=== PATIENT | male | born 2000 ===

== ENCOUNTER 2022-03-01 15:54 | Outpatient (REF) | payer OTHER, SELFPAY ==
[2022-03-01 16:02] LABS: MANUAL DIFF FLAG NO
[2022-03-01 16:06] LABS: Basophils Percent Auto 0.6 % (0-2); Eosinophils Absolute Auto 0.1 X10*3/uL (0.0-0.4); Eosinophils Percent Auto 1.3 % (0-4); Hematocrit 44.1 % (42.0-52.0); Imm Gran Abs Auto 0.01 X10*3/uL (0.00-0.03); Imm Gran Pct Auto 0.1 % (0.0-0.4); Lymphocytes Absolute Auto 1.8 X10*3/uL (1.2-4.9); Lymphocytes Percent Auto 24.4 % (20-40); Mean Corpuscular Hemoglobin 30.4 pg (27.0-33.0); Mean Corpuscular Volume 89.5 fL (80.0-98.0); Mean Platelet Volume 10.1 fL (9.4-12.4); Monocytes Absolute Auto 0.9 X10*3/uL (0.1-1.2); Monocytes Percent Auto 12.8 % (2-11); Neutrophils Absolute Auto 4.4 x10*3/uL (2.0-8.3); Neutrophils Percent Auto 60.8 % (45-73); Platelet Count 226 X10*3/uL (160-400); Red Blood Count 4.93 X10*6/uL (4.60-5.80); Red Cell Distribution Width 12.8 % (11.0-16.0); White Blood Count 7.2 X10*3/uL (4.8-10.8)
[2022-03-01 16:11] LABS: Appearance Urine Clear; Color Urine Dark Yellow; Glucose Urine UA Negative (Negative); Leukocyte Esterase Urine Negative (Negative); Nitrite Urine Negative (Negative); Specific Gravity - Urine >= 1.030 (1.005-1.025); Urine Blood Negative (Negative); Urine Ketones Trace mg/dL (Negative); Urine Protein Trace mg/dL (Neg-Trace)
[2022-03-01 16:14] LABS: Bacteria Urine None Seen (None Seen); Hyaline Casts Urine 0-2 /LPF (0-2); RBC Urine 0-2 /HPF (0-2); Squamous Epithelial Cell Urine 0-2 /HPF (0-2); WBC Urine 0-5 /HPF (0-5)
[2022-03-01 16:17] LABS: Alanine Aminotransferase 14 U/L (0-40); Albumin Level 4.7 g/dL (3.5-5.0); Alkaline Phosphatase 104 U/L (39-117); Anion Gap 11 (12-20); Aspartate Amino Transferase 19 U/L (5-37); Bilirubin Total 1.1 mg/dL (0.0-1.0); Blood Urea Nitrogen 17 mg/dL (9-16); Calcium 9.4 mg/dL (8.4-10.2); Carbon Dioxide 28 mmol/L (22-29); Chloride 104 mmol/L (96-108); Cholesterol 148 mg/dL; Estimated Glomerular Filt Rate > 60; Glucose Random 86 mg/dL (60-115); HDL Cholesterol 60 mg/dL; LDL Cholesterol Calculated 78 mg/dl; Potassium 4.2 mmol/L (3.3-5.1); Sodium 139 mmol/L (135-145); Total Protein 7.3 g/dL (6.5-8.0); Triglycerides 53 mg/dL
[2022-03-01 16:38] LABS: TSH reflex Free T4 2.02 uIU/mL (0.32-4.0)
== END 2022-03-01 15:55 | disposition home or self-care (01) ==
LOC: HO.LNP 15:54
PROVIDERS: Visit Provider Internal Medicine
DX: F41.9 Anxiety disorder, unspecified (principal)
CPT/HCPCS: 80053; 80061; 81001; 84443; 85025

== ENCOUNTER 2023-12-03 10:52 | Outpatient (REF) | payer BC, SELFPAY ==
[2023-12-03 10:55] LABS: MANUAL DIFF FLAG NO
[2023-12-03 11:12] LABS: Basophils Absolute Auto 0.1 X10*3/uL (0.0-0.2); Basophils Percent Auto 0.8 % (0-2); Eosinophils Absolute Auto 0.1 X10*3/uL (0.0-0.4); Hematocrit 45.6 % (42.0-52.0); Hemoglobin 15.7 g/dl (14.0-18.0); Imm Gran Abs Auto 0.01 X10*3/uL (0.00-0.03); Imm Gran Pct Auto 0.2 % (0.0-0.4); Lymphocytes Absolute Auto 2.5 X10*3/uL (1.2-4.9); Lymphocytes Percent Auto 40.1 % (20-40); Mean Corpuscular HGB Conc 34.4 g/dl (31.0-36.0); Mean Corpuscular Hemoglobin 30.6 pg (27.0-33.0); Mean Corpuscular Volume 88.9 fL (80.0-98.0); Monocytes Absolute Auto 0.8 X10*3/uL (0.1-1.2); Monocytes Percent Auto 12.6 % (2-11); Neutrophils Absolute Auto 2.7 x10*3/uL (2.0-8.3); Neutrophils Percent Auto 44.3 % (45-73); Platelet Count 222 X10*3/uL (160-400); Red Blood Count 5.13 X10*6/uL (4.60-5.80); Red Cell Distribution Width 12.6 % (11.0-16.0); White Blood Count 6.1 X10*3/uL (4.8-10.8)
[2023-12-03 11:17] LABS: Appearance Urine Clear; Color Urine Yellow; Glucose Urine UA Negative (Negative); Leukocyte Esterase Urine Trace (Negative); Nitrite Urine Negative (Negative); Specific Gravity - Urine 1.025 (1.005-1.025); UMIC TRIGGER UACC YES; Urine Blood Negative (Negative); Urine Ketones Negative (Negative); Urine Protein Trace mg/dL (Neg-Trace)
[2023-12-03 11:19] LABS: Bacteria Urine None Seen (None Seen); Hyaline Casts Urine 0-2 /LPF (0-2); RBC Urine 0-2 /HPF (0-2); Squamous Epithelial Cell Urine 0-2 /HPF (0-2); WBC Urine 0-5 /HPF (0-5)
[2023-12-03 11:25] LABS: Alanine Aminotransferase 20 U/L (0-40); Albumin Level 4.6 g/dL (3.5-5.0); Alkaline Phosphatase 84 U/L (39-117); Anion Gap 11 (12-20); Aspartate Amino Transferase 23 U/L (5-37); Blood Urea Nitrogen 16 mg/dL (9-16); Calcium 9.8 mg/dL (8.4-10.2); Carbon Dioxide 27 mmol/L (22-29); Chloride 106 mmol/L (96-108); Cholesterol 167 mg/dL (<200); Estimated Glomerular Filt Rate > 60; Glucose Fasting 88 mg/dL (60-99); HDL Cholesterol 54 mg/dL (>40); LDL Cholesterol Calculated 102 mg/dL (<100); Potassium 3.8 mmol/L (3.3-5.1); Sodium 140 mmol/L (135-145); Total Protein 7.4 g/dL (6.5-8.0); Triglycerides 57 mg/dL (<150)
== END 2023-12-03 10:53 | disposition home or self-care (01) ==
LOC: HO.LNP 10:52
PROVIDERS: Visit Provider Internal Medicine
DX: Z00.00 Encounter for general adult medical examination without abnormal findings (principal); Z13.89 Encounter for screening for other disorder
CPT/HCPCS: 80053; 80061; 81001; 85025

== ENCOUNTER 2024-12-03 07:30 | Outpatient (REF) | payer BC, SELFPAY ==
--- OUTSIDE RECORDS SUMMARY | 2024-04-20 10:15 | XMS_ITS ---
Author Organization Monty Fraser MD Address [address] [place], [place] [id number] Care Team Providers Care Express Manager Name Role Phone Monty Fraser Primary Care Provider [phone] Reason For Referral Reason impetigo Diagnosis 1 Impetigo (L01.00) Referral Organization Monty Fraser MD Referring Provider First Name Monty Referring Provider Last Name Evelio Referring Provider Speciality Internal M edicine Referred Provider [facility] Referred Provider Specialty Dermatology General Notes Hoda Dooley 03:13:39 PM EST > ins referral faxed patient is aware of appt Soumya Annette 04/21/2024 08:59:20 AM EST > faxed keep failing, patient has a hard copy of the referral Referral Priority Routine Referral Appointment Date 04/21/2024 REASON FOR VISIT left arm rash x 4 days, seen at [facility], given Valcycolvir, no improvement Medications Medication SIG (Take, Route, Frequency, Duration) Notes Start Date End Date Status Doxycycline Hyclate 100 MG 1 capsule Ora lly Twice a day for 10 days 04/20/2024 Active Mupirocin Calcium 2 % as directed Order Processing Specialist ally 3 times a day for 10 days 04/20/2024 Active Paxil 30 MG 1 tablet in the morn ing Orally Once a day for 90 days 03/01/2022 Active Vital Signs Blood pressure systolic 100 mm Hg 04/20/20 24 Blood pressure diastolic 60 mm Hg 024 Height 68 in 04/20/2024 Weight 190 lbs 04/20/2024 BMI 28.89 kg/m2 04/20/2024 Encounters Encounter Location Date Provider Diagnosis Monty Fraser MD [address] [place], [place] [id number] 04/20/2024 Monty Fraser Impetigo L01.00 Assessments Encounter Date Diagnosis (ICD Code) Assessment Notes Treatment Notes Treatment Clinical Notes Section Notes 04/20/2024 Impetigo (ICD-10 - L01.00) will stop the valcylclovir and just use the antibiotics, patient verbalized understanding of instructions Plan Of Treatment Medication Medication Name Sig Start Date Stop Date Notes Doxycycline Hyclate 100 MG 1 capsule Ora lly Twice a day for 10 days 04/20/2024 Mupirocin Calcium 2 % as directed Order Processing Specialist ally 3 times a day for 10 days 04/20/2024 Treatment Notes Assessment Notes Impetigo will stop the valcyl clovir and just use the antibiotics, patient verbalized understanding of instructions Referrals Referral Date Details 04/20/2024 04/20/2024, impetigo , [facility] Next Appt Details Provider Name:Monty Lopez ier, 12/10/2024 11:00:00 AM, [address], [address], [place], [place], [id number], Progress Notes * Yasmani GALLEGOSDOB:1999 (23 yo M)Acc No.[id number]:04/20/2024 Progress Notes Patient: Yasmani Roberts Provider: Diana Fraser MD :2000 A ge:23 Y S ex:Male Date:04/20/2024 Address: [address], [id number] Subjective: * Chief Complaints: * L eft arm rash x 4 daysseen at [facility], given Valcycolvir, no improvement * HPI: S ymptom(s): patient is a 23 yo male here with complaint of rash on upper left arm, that appears to be herpes or impetigo. * ROS: G eneral/Constitutional: Patient denies c hills , fatigue , fever. E NT: Patient denies d ecreased sense of smell , any loss of taste , sore throat. M usculoskeletal: Patient denies m uscle aches. P eripheral Vascular: Patient denies r ed and blue toes. l esion is still spreading after starting on meds. * Medical History: * Surgical History: * Hospitalization/Major Diagno stic Procedure: * Medications: T akingPaxil 30 MG Tablet 1 tablet in the morning Orally Once a dayTaking Paxil 30 MG Tablet 1 tablet in the morning Orally Once a day Objective: * Vitals: H t: 68, Wt:190, BMI:28.89, BP:100/60. * Examination: G eneral Examination: GENERAL APPEARANCE: h as a 2 inch lesion on upper arm with lynn blisters.. Assessment: * Assessment: 1. I mpetigo - L01.00 (Primary) Plan: * Treatment: * Procedure Codes: * * Sign off status: Completed true * Provider: Diana Fraser MD Date: 06/20/2023 Generated for Elsa richardson/Eric/Rodrigosmitting on: 0 12/03/2024 12:24 PM EDT History and Physical Notes * HPI (History of Present Illness) Category Sub-Category Detail Notes Category Not es Symptom(s) patient is a 23 yo male here with complaint of rash on upper left arm, that appears to be herpes or impetigo Examination Category Sub-Category Detail Notes Category Not es General Examination GENERAL APPEARANCE: has a 2 inch lesion on upper arm with lynn blisters. Consultation Request Notes Referral Date Referring Provider Referred Provider Not es 04/20/2024 Monty Fraser, DERMATOLOGY [facility]
[2024-12-03 12:02] LABS: MANUAL DIFF FLAG NO
[2024-12-03 12:11] LABS: Hematocrit 45.0 % (42.0-52.0); Hemoglobin 15.7 g/dl (14.0-18.0); Imm Gran Abs Auto 0.03 X10*3/uL (0.00-0.03); Imm Gran Pct Auto 0.5 % (0.0-0.4); Lymphocytes Absolute Auto 2.0 X10*3/uL (1.2-4.9); Mean Corpuscular HGB Conc 34.9 g/dl (31.0-36.0); Mean Corpuscular Hemoglobin 31.3 pg (27.0-33.0); Mean Corpuscular Volume 89.8 fL (80.0-98.0); NRBC Abs Auto 0.000 X10*3/uL (0.0-0.012); NRBC Pct Auto 0.0 /100WBC (0.0-0.2); Platelet Count 213 X10*3/uL (160-400); Red Blood Count 5.01 X10*6/uL (4.60-5.80); White Blood Count 6.4 X10*3/uL (4.8-10.8)
[2024-12-03 12:20] LABS: Appearance Urine Clear; Glucose Urine UA Negative (Negative); PH 6.0 (5.0-9.0); Specific Gravity - Urine >= 1.030 (1.005-1.025)
[2024-12-03 12:29] LABS: Alanine Aminotransferase 28 U/L (0-40); Albumin Level 4.6 g/dL (3.5-5.0); Alkaline Phosphatase 84 U/L (39-117); Anion Gap 13 (12-20); Aspartate Amino Transferase 34 U/L (5-37); Blood Urea Nitrogen 18 mg/dL (9-16); Calcium 9.1 mg/dL (8.4-10.2); Carbon Dioxide 25 mmol/L (22-29); Chloride 105 mmol/L (96-108); Cholesterol 178 mg/dL (<200); Estimated Glomerular Filt Rate > 60; HDL Cholesterol 58 mg/dL (>40); Potassium 4.1 mmol/L (3.3-5.1); Sodium 139 mmol/L (135-145); Total Protein 6.9 g/dL (6.5-8.0); Triglycerides 66 mg/dL (<150)
== END 2024-12-03 07:31 | disposition home or self-care (01) ==
LOC: HO.LNP 07:30
PROVIDERS: Visit Provider Internal Medicine
DX: Z00.00 Encounter for general adult medical examination without abnormal findings (principal)
CPT/HCPCS: 80053; 80061; 81001; 85025